=== PATIENT | female | born 1970 | race Native Hawaiian/Other Pacific Islander ===

== ENCOUNTER 2017-01-08 13:00 | Inpatient (IN) | payer OTHER ==
[~2017-01-08] VITALS: Ht 162.6 cm; Wt 62.7 kg
[2017-01-08 13:51] VITALS: BP 112/67; TEMP 98; Ht 162.6 cm; Wt 62.7 kg
[2017-01-08 14:16] LABS: PLATELET COUNT 139 K/uL (152-353)
[2017-01-08] MEDS ORDERED: CITALOPRAM40 MG PO (14:29)
[2017-01-08] MEDS ORDERED: LISI20TA31 PO (14:30)
[2017-01-08] MEDS ORDERED: TRAZ50TA36 PO (14:32)
[2017-01-08 14:39] LABS: POTASSIUM 3.8 mmol/L (3.6-5.2); SODIUM 129 mmol/L (136-145)
[2017-01-09 00:13] VITALS: BP 121/70; TEMP 98
[2017-01-09 05:18] VITALS: BP 145/69; TEMP 98.3
[2017-01-09 05:39] LABS: POTASSIUM 3.7 mmol/L (3.6-5.2); SODIUM 128 mmol/L (136-145)
[2017-01-09 05:42] LABS: PLATELET COUNT 130 K/uL (152-353)
[2017-01-09 08:00] VITALS: BP 144/85; TEMP 98.2
[2017-01-09 12:00] VITALS: BP 126/76; TEMP 98.2
[2017-01-09 16:00] VITALS: BP 130/72; TEMP 98
[2017-01-09 20:00] VITALS: BP 151/83; TEMP 98.8
[2017-01-10 00:19] VITALS: BP 115/71; TEMP 98.3
[2017-01-10 04:00] VITALS: BP 142/87; TEMP 98.4
[2017-01-10 05:20] LABS: PLATELET COUNT 166 K/uL (152-353)
[2017-01-10 07:56] LABS: POTASSIUM 3.6 mmol/L (3.6-5.2); SODIUM 130 mmol/L (136-145)
[2017-01-10 08:00] VITALS: BP 141/80; TEMP 98.4
[2017-01-10 12:00] VITALS: BP 161/96; TEMP 98.5
[2017-01-10 16:00] VITALS: BP 119/79; TEMP 98.2
[2017-01-10 20:11] VITALS: BP 122/46; TEMP 98.7
[2017-01-11 05:00] VITALS: BP 127/74; TEMP 98.3
[2017-01-11 06:04] LABS: PLATELET COUNT 170 K/uL (152-353)
[2017-01-11 06:11] LABS: POTASSIUM 3.9 mmol/L (3.6-5.2); SODIUM 137 mmol/L (136-145)
[2017-01-11 08:00] VITALS: BP 128/89; TEMP 98.2
[2017-01-11 12:00] VITALS: BP 118/68; BP 132/75; TEMP 98.3; TEMP 99.5
[2017-01-11 16:00] VITALS: BP 129/70; TEMP 98.4
[2017-01-11 20:00] VITALS: BP 132/69; TEMP 98.5
[2017-01-12] VITALS: BP 118/66; TEMP 98.1
[2017-01-12 04:00] VITALS: BP 178/76; TEMP 97.7
[2017-01-12 05:57] LABS: PLATELET COUNT 200 K/uL (152-353)
[2017-01-12 06:13] LABS: POTASSIUM 3.6 mmol/L (3.6-5.2); SODIUM 136 mmol/L (136-145)
[2017-01-12 08:00] VITALS: BP 137/78; TEMP 98
[2017-01-12 12:00] VITALS: BP 126/76; TEMP 98.3
== END 2017-01-12 15:30 | disposition home or self-care (01) | DRG 885 ==
LOC: MED/SURG 13:00
PROVIDERS: ADMIT Family Medicine
DX: F22 Delusional disorders (principal); E86.0 Dehydration; L40.8 Other psoriasis; G47.09 Other insomnia; R74.8 Abnormal levels of other serum enzymes; F17.200 Nicotine dependence, unspecified, uncomplicated; R41.0 Disorientation, unspecified
CPT/HCPCS: 36415; 80048; 80053; 80074; 80076; 80307; 82140; 82306; 82607; 83605; 83735; 84443; 85027; 85651; 86592; 96365; 96366; 96375; G0479; J2930; J3411; J3475; J3490

== ENCOUNTER 2019-09-14 07:36 | Outpatient (CLI) | payer OTHER ==
[~2019-09-14 07:36] MED LIST: CITALOPRAM40 MG PO; LISI20TA31 PO; TRAZ50TA36 PO
== END 2019-09-14 07:46 | disposition short-term general hospital (02) ==
LOC: AMB 07:36
DX: M54.5 Low back pain (principal); S30.810A Abrasion of lower back and pelvis, initial encounter; V89.0XXA Person injured in unspecified motor-vehicle accident, nontraffic, initial encounter; Y92.89 Other specified places as the place of occurrence of the external cause
CPT/HCPCS: A0425; A0429

== ENCOUNTER 2019-09-14 08:00 | Emergency (ER) | payer OTHER ==
[~2019-09-14] VITALS: Ht 162.6 cm; Wt 77.1 kg
[2019-09-14 08:05] VITALS: BP 115/80; TEMP 98.2
== END 2019-09-14 10:40 | disposition home or self-care (01) ==
LOC: ED 08:00
DX: S20.211A Contusion of right front wall of thorax, initial encounter (principal); S30.1XXA Contusion of abdominal wall, initial encounter; V89.2XXA Person injured in unspecified motor-vehicle accident, traffic, initial encounter
CPT/HCPCS: 99283; Q9963

== ENCOUNTER 2023-06-16 14:17 | Outpatient (CLI) | payer OTHER | END 2023-06-16 18:58 | disposition home or self-care (01) | LOC: RAD 14:17 | PROVIDERS: ATTEND Nurse Practitioner Family | DX: Z30.431 Encounter for routine checking of intrauterine contraceptive device (principal) ==